=== PATIENT | female | born 1935 | race Caucasian/White ===

== ENCOUNTER → 2023-11-27 14:06 | Outpatient (BNVA) | payer MEDICARE, OTHER, SELFPAY | PROVIDERS: PCP Family Medicine; Visit Provider Family Medicine | DX: I10 Essential (primary) hypertension (principal); M81.0 Age-related osteoporosis without current pathological fracture; G62.9 Polyneuropathy, unspecified | CPT/HCPCS: 80053; 82306; 82607; 82746; 84443; 85025 ==

== ENCOUNTER → 2024-06-07 08:13 | Outpatient (BNVA) | payer MEDICARE, OTHER, SELFPAY | PROVIDERS: PCP Family Medicine; Visit Provider Family Medicine | DX: I10 Essential (primary) hypertension (principal) | CPT/HCPCS: 80053 ==

== ENCOUNTER → 2024-06-25 08:54 | Outpatient (BNVA) | payer MEDICARE, OTHER, SELFPAY | PROVIDERS: PCP Family Medicine; Visit Provider Podiatrist Foot & Ankle Surgery | DX: L84 Corns and callosities (principal); M20.41 Other hammer toe(s) (acquired), right foot; M79.671 Pain in right foot | CPT/HCPCS: 99204 ==

== ENCOUNTER → 2024-08-21 14:03 | Outpatient (BNVA) | payer MEDICARE, SELFPAY | PROVIDERS: PCP Family Medicine; Visit Provider Family Medicine | DX: R30.0 Dysuria (principal) | CPT/HCPCS: 81000 ==

== ENCOUNTER → 2024-10-11 13:06 | Outpatient (BNVA) | payer MEDICARE, SELFPAY | PROVIDERS: PCP Family Medicine; Visit Provider Family Medicine | DX: I10 Essential (primary) hypertension (principal); R60.9 Edema, unspecified | CPT/HCPCS: 80053; 81000; 83735; 83880 ==

== ENCOUNTER → 2024-10-30 14:35 | Outpatient (BNVA) | payer MEDICARE, SELFPAY | PROVIDERS: PCP Family Medicine; Visit Provider Family Medicine | DX: Z01.818 Encounter for other preprocedural examination (principal); R53.83 Other fatigue; R60.9 Edema, unspecified | CPT/HCPCS: 80053; 81003; 82306; 82607; 83735; 84443; 85025; 87086 ==

== ENCOUNTER → 2025-01-20 10:04 | Outpatient (BNVA) | payer MEDICARE, OTHER, SELFPAY | PROVIDERS: PCP Family Medicine; Visit Provider Family Medicine | DX: R30.0 Dysuria (principal) | CPT/HCPCS: 81000 ==

== ENCOUNTER 2025-01-28 15:11 | Outpatient (CLI) | payer MEDICARE, OTHER, SELFPAY ==
[2025-01-28] MEDS: iohexol 350 mg/mL 500 mL Btl (per mL) PO (16:14)
--- NOTE | 2025-01-28 16:30 | CT_ITS ---
WS: [id number] CT ABDOMEN AND PELVIS NONCONTRAST HISTORY: abdominal pain, LEFT abdominal pain for 3 months. TECHNIQUE: Imaging performed through the abdomen and pelvis. Coronal and sagittal reformats are submitted. All CT scans at [facility] use at least one of these dose optimization techniques: automated exposure control; mA and/or kV adjustment per patient size (includes targeted exams where dose is matched to clinical indication); or iterative reconstruction. DLP: 279.18 mGy.cm COMPARISON: None available. Lower thorax: Lung bases are clear. Normal size heart. Small hiatal hernia. Liver: Normal size liver. There is scattered hypodensities which are probably small cysts. The largest measuring 10 mm. No intrahepatic duct dilatation. Gallbladder: Prior cholecystectomy. Pancreas: Normal size and attenuation. Normal pancreatic duct. No pancreatitis or mass. Spleen: Normal. Adrenal glands: Normal. No mass. Right kidney: Large renal cysts. Largest cyst measures 6.5 cm in transverse diameter. Some of the cysts contain wall calcifications. The kidney is being deformed by the cyst but there is no obstruction. Left kidney: Mild renal atrophy. Kidney measures 8.7 cm in length. No obstruction or calcification. Aorta: Mild atherosclerosis abdominal aorta with no aneurysm. No free fluid, intraperitoneal air or significant lymphadenopathy. GI tract: There is mild thickening at the GE junction measuring up to 2.3 cm. No small bowel obstruction. Moderate diffuse constipation. No colitis. Abdominal wall: Negative. No hernia. Pelvis: Atrophic uterus. No pelvic mass or free fluid. Urinary bladder is negative. Osseous structures: Degenerative scoliosis of the lumbar spine. Disc bases are narrowed and desiccated. CT/CT abdomen pelvis wo con [id number] IMPRESSION: 1. No GI tract obstruction. 2. No renal obstruction. 3. Prior cholecystectomy. 4. Marked asymmetric thickening at the GE junction. Consider upper endoscopy f or further evaluation and exclude neoplasm. 5. Large RIGHT renal cysts with wall calcification. 6. Mild atrophy LEFT kidney.
[2025-01-28 16:35] LABS: Blood Urea Nitrogen 40 mg/dL (8-23)
== END 2025-01-28 15:12 | disposition home or self-care (01) ==
LOC: RAD 15:13
PROVIDERS: PCP Family Medicine; Visit Provider Family Medicine
DX: R10.32 Left lower quadrant pain (principal); Z90.49 Acquired absence of other specified parts of digestive tract; N28.1 Cyst of kidney, acquired; K22.89 Other specified disease of esophagus; N26.9 Renal sclerosis, unspecified
CPT/HCPCS: 74176; 82565; 84520